=== PATIENT | male | born 1965 | race Caucasian/White ===

== ENCOUNTER → 2020-09-23 09:54 | Outpatient (CLI) | payer OTHER, SELFPAY ==
[2020-09-23 11:24] LABS: Hematocrit 48.4 % (41-53); Hemoglobin 16.2 g/dL (13.5-17.5); Mean Corpuscular HGB Conc 33.5 % (30-36); Mean Corpuscular Hemoglobin 29.3 PG (26-34); Mean Corpuscular Volume 87.3 fL (80-100); Platelet Count 202 X10^3/uL (150-400); Red Blood Cell Count 5.54 X10^6/uL (4.5-5.9); Red Cell Distribution Width 13.7 % (11.6-14.8); White Blood Cell Count 6.5 X10^3/uL (4.5-11.0)
[2020-09-23 11:47] LABS: Alanine Aminotransferase 54 IU/L (<50); Albumin 4.4 g/dL (3.5-5.0); Albumin Globulin Ratio 1.3 (1.0-2.8); Alkaline Phosphatase 83 U/L (38-126); Aspartate Aminotransferase 39 IU/L (17-59); BUN Creatinine Ratio 18.6 (6-22); Bilirubin Total 0.4 mg/dL (0.2-1.3); Blood Urea Nitrogen 16 mg/dL (9-20); Calcium 8.9 mg/dL (8.4-10.2); Carbon Dioxide 24 mmol/L (22-32); Chloride 107 mmol/L (98-107); Cholesterol 179 mg/dL (140-199); Estimated Glomerular Filt Rate > 60.0 mL/min (>60); Globulin 3.3 g/dL (1.7-4.1); Glucose 108 mg/dL (70-100); HDL Cholesterol 27 mg/dL (40-60); HEMOLYSIS < 15 (0-50); LDL Cholesterol Calculated 134 mg/dL (<100); Potassium 4.3 mmol/L (3.4-5.1); Sodium 137 mmol/L (137-145); Total Protein 7.7 g/dL (6.3-8.2); Triglycerides 89 mg/dL (35-150)
[2020-09-23 12:17] LABS: TSH w/ Reflex to FT4 2.22 uIU/mL (0.47-4.68)
== END ==
PROVIDERS: PCP Registered Nurse Diabetes Educator; Referring Provider Registered Nurse Diabetes Educator; Visit Provider Registered Nurse Diabetes Educator
DX: Z00.00 Encounter for general adult medical examination without abnormal findings (principal); E66.9 Obesity, unspecified
CPT/HCPCS: 36415; 80053; 80061; 84443; 85027

== ENCOUNTER 2022-02-28 15:49 | Emergency (ER) | payer OTHER, SELFPAY ==
[2022-02-28] VITALS (11 sets, daily range): BP systolic 177–206; BP diastolic 91–154; PULSE 68–90; RESP 16; TEMP 36.6; O2SAT 96–99; BMI 35.6
--- NOTE | 2022-02-28 16:37 | DI.CT.S_ITS ---
PROCEDURE: CT HEAD/BRAIN WO CON INDICATIONS: trauma, concussive symptoms, HTN TECHNIQUE: Noncontrast 5 mm thick angled axial sections acquired from the foramen magnum to the vertex, with coronal and sagittal reformats. For radiation dose reduction, the following was used: automated exposure control, adjustment of mA and/or kV according to patient size. COMPARISON: None. FINDINGS: Image quality: Excellent. CSF spaces: Basal cisterns are patent. No extra-axial fluid collections. Ventricles are normal in size and shape. Brain: No midline shift. No intracranial masses or hemorrhage. Guevara-white matter interface is normal. Skull and face: Calvarium and visualized facial bones are intact, without suspicious lesions. Sinuses: Visualized sinuses and mastoids are clear. IMPRESSION: Normal CT of the brain Approved by: Chang Martin M.D. on 02/28/2022 at 16:10
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
[2022-02-28] MEDS: ACETAMINOPHEN 325 MG TABLET 975 MG PO (16:48)
[2022-02-28] MEDS: TET,DIPH,PERTUSS(ACELL),VAC/PF 0.5 ML SYRINGE IM (16:59)
== END 2022-02-28 18:26 | disposition home or self-care (01) ==
PROVIDERS: Emergency Provider Nurse Practitioner Critical Care Medicine; PCP Registered Nurse Diabetes Educator
DX: S06.0X0A Concussion without loss of consciousness, initial encounter (principal); S59.902A Unspecified injury of left elbow, initial encounter; R42 Dizziness and giddiness; I10 Essential (primary) hypertension; V89.2XXA Person injured in unspecified motor-vehicle accident, traffic, initial encounter; Z23 Encounter for immunization
CPT/HCPCS: 70450; 73080; 90471; 99284; 90715

== ENCOUNTER → 2022-12-27 16:01 | Outpatient (CLI) | payer OTHER, SELFPAY ==
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
--- NOTE | 2022-12-27 16:04 | DI.RAD.S_ITS ---
PROCEDURE: XR ELBOW RT MIN 3V INDICATIONS: Fall and right elbow and left wrist TECHNIQUE: 3 views of the elbow were acquired. COMPARISON: None. FINDINGS: Bones: No fractures or dislocations. No suspicious bony lesions. Soft tissues: No elbow joint effusion. No suspicious soft tissue calcifications. IMPRESSION: No fracture. No osseous lesion. If symptoms and/or clinical suspicion for pathology persists, further assessment with repeat radiographs (7-10 days) or advanced imaging (e.g. CT, MRI or bone scan) should be considered. Dictated by: Dorie Hugo MD, PhD on 12/27/2022 at 16:36 Approved by: Dorie Hugo MD, PhD on 12/27/2022 at 16:36
== END ==
PROVIDERS: PCP Registered Nurse Diabetes Educator; Referring Provider Physician Assistant; Visit Provider Physician Assistant
DX: M25.432 Effusion, left wrist (principal); M25.521 Pain in right elbow; M25.532 Pain in left wrist
CPT/HCPCS: 73080; 73110

== ENCOUNTER → 2023-11-10 11:24 | Outpatient (CLI) | payer OTHER, SELFPAY ==
[2023-11-10 13:02] LABS: Add Manual Diff / Slide Review NO; Basophils Absolute Auto 100 /uL (0-100); Eosinophils Absolute Auto 100 /uL (0-450); Eosinophils Percent Auto 1.8 % (2-4); Hematocrit 47.9 % (41-53); Hemoglobin 16.3 g/dL (13.5-17.5); Lymphocytes Absolute Auto 2100 /uL (1100-4500); Lymphocytes Percent Auto 33.7 % (25-40); Mean Corpuscular Hemoglobin 29.3 PG (26-34); Mean Corpuscular Volume 86.3 fL (80-100); Monocytes Absolute Auto 600 /uL (0-900); Monocytes Percent Auto 9.9 % (3-14); Neutrophils Absolute Auto 3300 /uL (1500-7000); Neutrophils Percent Auto 52.6 % (50-75); Platelet Count 261 X10^3/uL (150-400); Red Blood Cell Count 5.56 X10^6/uL (4.5-5.9); Red Cell Distribution Width 13.9 % (11.6-14.8); White Blood Cell Count 6.3 X10^3/uL (4.5-11.0)
[2023-11-10 13:06] LABS: Hemoglobin A1C% w Est Avg Glu 5.9 % (4.0-6.0)
[2023-11-10 13:38] LABS: Alanine Aminotransferase 44 IU/L (<50); Albumin 4.6 g/dL (3.5-5.0); Albumin Globulin Ratio 1.3 (1.0-2.8); Alkaline Phosphatase 79 U/L (38-126); Aspartate Aminotransferase 30 IU/L (17-59); Bilirubin Total 0.8 mg/dL (0.2-1.3); Blood Urea Nitrogen 15 mg/dL (9-20); Calcium 9.6 mg/dL (8.4-10.2); Carbon Dioxide 28 mmol/L (22-32); Chloride 100 mmol/L (98-107); Cholesterol 186 mg/dL (140-199); Estimated Glomerular Filt Rate > 60 mL/min (>60); Globulin 3.6 g/dL (1.7-4.1); Glucose 104 mg/dL (70-100); HDL Cholesterol 32 mg/dL (40-60); HEMOLYSIS < 15 (0-50); LDL Cholesterol Calculated 134 mg/dL (<100); Potassium 4.5 mmol/L (3.4-5.1); Sodium 137 mmol/L (137-145); Total Protein 8.2 g/dL (6.3-8.2); Triglycerides 98 mg/dL (35-150)
[2023-11-10 13:57] LABS: Prostate Specific Antigen Scrn 1.53 ng/mL (0.1-4.0)
[2023-11-10 14:05] LABS: Creatinine Urine Random 205.9 mg/dL
[2023-11-10 14:11] LABS: Microalbumi Creatinin Ratio Ur 26.2 ug/mg CR (<30); Microalbumin Urine Random 5.4 mg/dL (0-1.6)
[2023-11-13 17:22] LABS: HIV 1 & 2 Ab/Ag 4th Gen Combo NEGATIVE (NEGATIVE); Hep C Virus Ab w/Reflex Quant NEGATIVE s/c (NEGATIVE)
== END ==
PROVIDERS: PCP Family Medicine; Referring Provider Family Medicine; Visit Provider Family Medicine
DX: I10 Essential (primary) hypertension (principal); E66.9 Obesity, unspecified; R73.09 Other abnormal glucose; R73.01 Impaired fasting glucose; R74.8 Abnormal levels of other serum enzymes; E78.5 Hyperlipidemia, unspecified; Z12.5 Encounter for screening for malignant neoplasm of prostate; Z11.4 Encounter for screening for human immunodeficiency virus [HIV]; Z11.59 Encounter for screening for other viral diseases
CPT/HCPCS: 36415; 80053; 80061; 82043; 82570; 83036; 85025; 86803; 87389; G0103

== ENCOUNTER → 2025-06-10 14:50 | Outpatient (CLI) | payer OTHER, SELFPAY ==
--- NOTE | 2025-06-13 09:30 | DIET.OUTPTC ---
Dietary Outpatient Consult Consult Date:06/10/25 Assessment:? 60 y M referred to dietitian for prediabetes, obesity, hypertension Pt reports struggling with weight loss and weight loss maintenance. has tried many diets/dietary patterns (i.e. slimfast, keto, etc) in the past with successful weight loss but then starts to regain weight while still on following diet. No previous formal educ on dietary patterns to help with cholesterol and prediabetes management GI symptoms: Denies N/V/D/C, reports daily BM type 3-4 Diet Recall: B-coffee with sugar free creamer and meds L-sandwich (when on [facility] goes to [employer] grocery store and gets deli sandwich, when in [place], goes home for deli sandwich, and on /Mon goes to [employer] for [employer] special with chips and diet drink D-homemade 4 oz protein, 1 c rice, 1c+ of non-starch veg, sparkling water SF 1 alcoholic drink w/ dinner/post dinner 05/30/2509:12 05/30/2509:37 Height 6 ft 4 in Weight 306 lb 8 oz BMI 37.3 Activity: pickleball T/R 1.5 hr, golf every other weekend 1.5 hr Pertinent Labs: 5.9% A1c, 134 LDL, 32 HDL; needs updated labs Nutrition Diagnosis:? Altered nutrition related lab values related to incomplete understanding on lab values and correlation with nutrition aeb 5.9% A1c, 134 LDL, 32 HDL Interventions:? Discussed and provided appropriate resources on the following: -Portion sizing -Education on label reading -Assessing hunger/fullness level -Plate Method, impact of macronutrients on blood sugar, meal timing, carbohydrate counting, pairing macronutrients and spreading out carbohydrates for better blood glucose management -Recommended servings for carbohydrates at meals and snacks -Fiber, amounts, types -Fats, amounts, types -Physical activity -Lab values and correlation with nutrition -Brainstormed appropriate meal plan based on food preferences Goals: -Added 1 hour walk moderate intensity pace on both weekend days -Reviewed [employer] nutrition facts discussed reducing bread CHO and subbing chips for apple -Half bread on sandwich from [employer] and add salad or egg to side -Get updated labs per PCP orders EER:? 45-60 g carbs at meals Monitoring/Evaluations:? F/u in 3 weeks Electronically Signed by: Tiffanie Skinner Clinical Dietitian [address] [id number]
== END ==
PROVIDERS: PCP Family Medicine; Referring Provider Family Medicine
DX: R73.03 Prediabetes (principal); E66.9 Obesity, unspecified; I10 Essential (primary) hypertension; Z68.37 Body mass index [BMI] 37.0-37.9, adult; Z71.3 Dietary counseling and surveillance
CPT/HCPCS: 97802